=== PATIENT | male | born 1960 | race Caucasian/White ===

== ENCOUNTER 2022-08-09 10:46 | Observation (INO) ==
[~2022-08-09 10:46] MED LIST: diphenhydrAMINE CAP 50 MG CAPSULE PO ONE
[2022-08-09 11:43] LABS: Basophils # 0.1 10*3/uL (0.0-0.2); Basophils % 0.8 % (0.0-0.8); Eosinophils # 0.1 10*3/uL (0.0-0.87); Eosinophils % 1.5 % (0.00-10.9); Hematocrit 50.1 VOL% (42.0-52.0); Hemoglobin 17.2 GM/DL (14.0-18.0); Immature Granulocytes % 0.5 %; Immature Granulocytes Absolute 0.04 #; Lymphocytes # 1.5 10*3/uL (1.4-4.0); Lymphocytes % 18.9 % (21.2-54.2); Mean Corpuscular HGB Conc 34.3 GM/DL (32-36); Mean Corpuscular Volume 83.8 FL (87-102); Monocytes # 0.7 10*3/uL (0.11-0.8); Monocytes % 8.8 % (1.7-12.7); Neutrophils % 69.5 % (38.7-73.9); Platelet Count 221 T/CUMM (130-400); Red Blood Count 5.98 MC/CUMM (3.8-5.5); Red Cell Distribution Width 12.6 % (9.3-17.3); White Blood Count 7.9 T/CUMM (4-12)
[2022-08-09 11:53] LABS: INR 0.9; PT Patient Result 10.3 SECS (10.1-12.1); Partial Thromboplastin Time 26.2 SECS (23.7-32.9)
[2022-08-09 12:01] LABS: Albumin 3.3 G/DL (3.4-5.0); Bilirubin,Total 0.4 MG/DL (0.20-1.00); Calcium 8.9 MG/DL (8.5-10.1); Osmolality,Calculated 281.2 MOS/KG (273-304); Potassium 4.3 MMOL/L (3.5-5.1)
[2022-08-09] MEDS ORDERED: hydrALAZINE 20 MG/1 ML VIAL IV PRN (14:32)
[2022-08-09] MEDS ORDERED: DOCUSATE SODIUM 100 MG CAPSULE PO PRN (14:32)
[2022-08-09] MEDS ORDERED: ONDANSETRON 4 MG/2 ML VIAL IV PRN (14:32)
[2022-08-09] MEDS ORDERED: ASPIRIN EC 325 MG TABLET PO STA (15:21)
[2022-08-09] MEDS: ENOXAPARIN 40 MG/0.4 ML SYRINGE SUBCUT SCH (15:51)
[2022-08-09] MEDS: INSULIN LISPRO 100 UNIT/ML SUBCUT SCH ×2 (17:24→20:20)
[2022-08-09] MEDS: carvediloL 3.125 MG TABLET PO SCH (20:20)
[2022-08-09] MEDS: ROSUVASTATIN 20 MG TABLET PO SCH (20:20)
[2022-08-09] MEDS ORDERED: SACUBITRIL/VALSARTAN 49-51 MG TABLET PO SCH (21:00)
[2022-08-10 01:37] LABS: Cannabinoid Screen,Urine Negative (Negative)
[2022-08-10 01:38] LABS: Barbiturates Screen,Urine Negative (Negative); Benzodiazepines Screen,Urine Negative (Negative); Opiate Screen,Urine Negative (Negative); Phencyclidine Screen,Urine Negative (Negative)
[2022-08-10 05:20] LABS: Basophils # 0.1 10*3/uL (0.0-0.2); Basophils % 1.1 % (0.0-0.8); Eosinophils # 0.2 10*3/uL (0.0-0.87); Eosinophils % 2.4 % (0.00-10.9); Hematocrit 50.7 VOL% (42.0-52.0); Immature Granulocytes % 0.7 %; Immature Granulocytes Absolute 0.06 #; Lymphocytes # 2.3 10*3/uL (1.4-4.0); Lymphocytes % 27.9 % (21.2-54.2); Mean Corpuscular HGB Conc 33.5 GM/DL (32-36); Mean Corpuscular Volume 84.9 FL (87-102); Mean Platelet Volume 9.5 FL (9.6-12.0); Monocytes # 0.9 10*3/uL (0.11-0.8); Monocytes % 11.3 % (1.7-12.7); Neutrophils % 56.6 % (38.7-73.9); Platelet Count 197 T/CUMM (130-400); Red Blood Count 5.97 MC/CUMM (3.8-5.5); Red Cell Distribution Width 12.6 % (9.3-17.3); White Blood Count 8.2 T/CUMM (4-12)
[2022-08-10 05:48] LABS: Calcium 8.8 MG/DL (8.5-10.1); Osmolality,Calculated 278.1 MOS/KG (273-304); Potassium 4.4 MMOL/L (3.5-5.1); Risk Ratio 5.27; VLDL Cholesterol 41.4 MG/DL
[2022-08-10] MEDS ORDERED: NITROGLYCERIN DRIP 50 MG/250 ML BOTTLE IV ONE (07:43)
[2022-08-10] MEDS ORDERED: HEPARIN/NACL 0.9% 2 UNITS/ML 2,000 UNIT/1,000 ML BAG IV ONE (07:43)
[2022-08-10] MEDS ORDERED: VERAPAMIL 5 MG/2 ML VIAL ONE (07:43)
[2022-08-10] MEDS ORDERED: fentaNYL 100 MCG/2 ML VIAL ONE (07:50)
[2022-08-10] MEDS ORDERED: MIDAZOLAM 2 MG/2 ML VIAL ONE (07:50)
[2022-08-10] MEDS ORDERED: SODIUM CHLORIDE 0.9% 1,000 ML IV SCH (08:00)
[2022-08-10] MEDS ORDERED: DIAZEPAM 5 MG TABLET PO ONE (08:00)
[2022-08-10] MEDS ORDERED: ENOXAPARIN 60 MG/0.6 ML SYRINGE ONE (08:10)
[2022-08-10] MEDS ORDERED: NALOXONE 0.4 MG/ML VIAL ONE (08:14)
[2022-08-10] MEDS ORDERED: flumazeniL 0.5 MG/5 ML VIAL IV ONE (08:19)
[2022-08-10] MEDS: INSULIN LISPRO 100 UNIT/ML SUBCUT SCH ×4 (08:50→21:49)
[2022-08-10] MEDS: carvediloL 3.125 MG TABLET PO SCH ×2 (09:05→21:48)
[2022-08-10] MEDS: PANTOPRAZOLE 40 MG TABLET PO SCH (09:05)
[2022-08-10] MEDS: ASPIRIN EC 81 MG TABLET PO SCH (09:05)
[2022-08-10] MEDS: SPIRONOLACTONE 25 MG TABLET PO SCH (09:05)
[2022-08-10] MEDS: ENOXAPARIN 40 MG/0.4 ML SYRINGE SUBCUT SCH (14:54)
[2022-08-10] MEDS: APIXABAN 5 MG TABLET PO SCH (21:47)
[2022-08-10] MEDS: ROSUVASTATIN 20 MG TABLET PO SCH (21:47)
[2022-08-11 06:01] LABS: Basophils # 0.1 10*3/uL (0.0-0.2); Basophils % 1.1 % (0.0-0.8); Eosinophils # 0.2 10*3/uL (0.0-0.87); Eosinophils % 2.7 % (0.00-10.9); Hematocrit 47.2 VOL% (42.0-52.0); Hemoglobin 16.3 GM/DL (14.0-18.0); Immature Granulocytes % 0.4 %; Immature Granulocytes Absolute 0.03 #; Lymphocytes % 28.2 % (21.2-54.2); Mean Corpuscular HGB Conc 34.5 GM/DL (32-36); Mean Corpuscular Volume 83.7 FL (87-102); Mean Platelet Volume 9.6 FL (9.6-12.0); Monocytes # 0.6 10*3/uL (0.11-0.8); Monocytes % 8.4 % (1.7-12.7); Neutrophils % 59.2 % (38.7-73.9); Platelet Count 173 T/CUMM (130-400); Red Blood Count 5.64 MC/CUMM (3.8-5.5); Red Cell Distribution Width 12.6 % (9.3-17.3)
[2022-08-11 06:15] LABS: Calcium 8.8 MG/DL (8.5-10.1); Potassium 4.2 MMOL/L (3.5-5.1)
[2022-08-11] MEDS: carvediloL 3.125 MG TABLET PO SCH (08:54)
[2022-08-11] MEDS: ASPIRIN EC 81 MG TABLET PO SCH (08:56)
[2022-08-11] MEDS: INSULIN LISPRO 100 UNIT/ML SUBCUT SCH (08:56)
[2022-08-11] MEDS: APIXABAN 5 MG TABLET PO SCH (08:56)
[2022-08-11] MEDS: SPIRONOLACTONE 25 MG TABLET PO SCH (08:57)
[2022-08-11] MEDS: PANTOPRAZOLE 40 MG TABLET PO SCH (08:57)
[2022-08-11 11:16] LABS: Myeloperoxidase Antibody < 0.2 U
[2022-08-11 12:01] VITALS: BP 94/67
== END 2022-08-11 12:20 | disposition home or self-care (01) ==
LOC: N.ED 10:46 → N.EDINP 10:46 → N.2W 16:35
PROVIDERS: ADMIT Internal Medicine; ATTEND Internal Medicine